=== PATIENT | female | born 1930 | race Caucasian/White ===

== ENCOUNTER 2018-08-22 12:59 | Observation (INO) | payer MEDICARE, OTHER ==
[2018-08-22 13:38] LABS: Hemoglobin 11.8 gm/dL (12.5-16.0); Mean Cell Volume 92.8 fl (78-100); Mean Corpuscular Hemoglobin 31.3 pg (27-31); Mean Corpuscular Hgb Conc 33.7 g/dl (32-36); Mean Platelet Volume 10.7 fl (8-12.5); Neutrophil # 4.5 K/mm3 (1.3-6.0); Neutrophil % 63.4 % (42-75.0); Platelet Count 196 K/mm3 (150-450); Red Blood Count 3.77 M/mm3 (4.2-5.4); Red Cell Distribution Width 12.1 % (11.5-14.0); White Blood Count 7.1 K/mm3 (4.0-10.5)
[2018-08-22 13:45] LABS: Urine Bilirubin Negative (NEGATIVE); Urine Ketone Negative (NEGATIVE); Urine Nitrite Negative (NEGATIVE); Urine Protein 100 mg/dL (NEGATIVE); Urine Specific Gravity >=1.030 SP.GR. (1.005-1.010); Urine Urobilinogen Normal (NORMAL); Urine pH 5.5 pH (5.0-7.0)
[2018-08-22 13:50] LABS: Albumin * 3.5 gm/dl (3.4-5.0); Anion Gap 12.7 mmol/L (6.8-13.8); BUN/Creatinine Ratio 17.5 (9.0-21.6); Bilirubin, Total 0.3 mg/dL (0.0-1.1); Ca. Corrected For Albumin 8.6 mg/dL (8.4-10.2); Calcium * 8.5 mg/dL (7.9-10.9); Carbon Dioxide 23.6 mmol/L (24-32.6); Potassium 4.3 mmol/L (3.4-4.6); Total Protein 6.6 gm/dL (6.2-8.2)
[2018-08-22 13:57] LABS: Urine Appearance Clear (CLEAR); Urine Bacteria TRACE; Urine Blood 5 /ul (NEGATIVE); Urine Color Yellow; Urine Renal Epithelial Cell TRACE /hpf
[2018-08-22] MEDS ORDERED: NORMAL SALINE 1,000 ML IV ONE (14:46)
--- NOTE | 2018-08-22 15:24 | ERNOTE ---
Lower Extremity HPI - Narrative Date of Service: 08/22/18 - General Lower Extremities Pain: other: bilateral - leg weakness Time Seen by Provider: 08/22/18 13:14 Source: patient Exam Limitations: no limitations - Immun/Allergies/Home Medications Immunizations: IMMUNIZATION HX Immunizations Up to Date No History of Influenza Vaccine Yes Hx Pneumococcal Vaccination Yes Allergies/Adverse Reactions: Allergies Allergy/AdvReac Type Severity Reaction Status Date / Time No Known Allergies Allergy Verified 08/03/18 15:19 Home Medications: HOME MEDICATIONS B-complex with vitamin C tablet 1 tab PO DAILY 05/29/18 [Last Taken Unknown] cholecalciferol (vitamin D3) 2,000 unit capsule 2,000 unit PO DAILY 05/29/18 [Last Taken Unknown] diphenhydramine 25 mg tablet 25 mg PO Q6H PRN tab 05/29/18 [Last Taken Unknown] naproxen sodium 220 mg capsule 220 mg PO BID PRN 05/29/18 [Last Taken Unknown] simvastatin 20 mg tablet 20 mg PO HS tab 05/29/18 [Last Taken Unknown] metoprolol tartrate 25 mg tablet 25 mg PO BID #180 tab 06/08/18 [Last Taken Unknown] glimepiride 2 mg tablet 2 mg PO DAILY #30 tab 07/02/18 [Last Taken Unknown] blood sugar diagnostic strips See Dose Instructions .ROUTE .MEDSUPPLY #20 ea 07/10/18 [Last Taken Unknown] lancets 28 gauge See Dose Instructions .ROUTE .MEDSUPPLY #25 ea 07/10/18 [Last Taken Unknown] lisinopril 10 mg tablet 10 mg PO BID #60 tab 07/24/18 [Last Taken Unknown] metformin 850 mg tablet 850 mg PO BID #60 tab 08/09/18 [Last Taken Unknown] - History of Present Illness Narrative: Patient presents to the ED for leg weakness. She relates that this began today. She was in the store and her legs started shaking and she could not hold herself up, going to the ground. At home her Sx continued and every time she tried to get up her legs would shake and she had to go to the floor again. No CP or SOB> No focal weakness. No back pain. No injury. never had anything like this before. No fever. Occurred: just prior to arrival Location of Incident: other - at the store and at home Method of Injury: Reports: no apparent injury Reason for Fall: Reports: unknown Loss of Consciousness: Reports: no loss of consciousness Modifying Factors - (Improves): Reports: other - rest Modifying Factors - (Worsens): Reports: other - standing Associated Symptoms: Denies: unable to bear weight Other Injuries: Reports: none Subsequent Symptoms: Denies: sensory loss, numbness, bowel/bladder problem Prior Treament: Denies: recently seen Review of Systems - Review of Systems Constitutional: Absent: fever ENT: Absent: sore throat Respiratory: Absent: shortness of breath Cardiology: Absent: chest pain Gastrointestinal/Abdominal: Absent: abdominal pain Neurological: Absent: headache All Other Systems: All systems neg except as marked Medical History (Last Reviewed 08/22/18 @ 15:20 by Alan Allan MD) Diabetes mellitus, type II Fracture, foot Onset Date: 1979 right Hyperlipidemia Hypertension Osteoarthritis Surgical History: Surgical History (Last Reviewed 08/22/18 @ 15:20 by Alan Allan MD) H/O tooth extraction Onset Date: ~1959 H/O: hysterectomy Onset Date: ~1959 History of cataract surgery bilateral 09/2013 and 10/2013 History of colonoscopy Onset Date: 03/2009 diverticulosis History of tonsillectomy in childhood Family History: Family History (Last Reviewed 08/22/18 @ 15:20 by Alan Allan MD) Father CVA (cerebral vascular accident), Onset Age: 89 Mother Cancer, Onset Age: 78 rectal cancer Social History: Preferred Language Spanish Do you have any jewish or Yes: bahai cultural preference? Smoking Status Never smoker Have you smoked in the past 12 No months Do you dip or chew tobacco No Alcohol Use sober Drug Use none (Last Updated 08/03/18 @ 15:41 by Diana Pratt MD) No Social History Section defined Physical Exam - Physical Exam General Appearance: Present: alert, no apparent distress Head Exam: Present: normal inspection, no evidence of injury Eye Exam: Normal inspection: bilateral, PERRL: bilateral Ears, Nose, Throat: Absent: pharyngeal erythema Neck: Present: normal inspection Respiratory: Present: no respiratory distress, normal breath sounds, no accessory muscle use, lungs clear Cardiovascular/Chest: Present: regular rate, rhythm, normal peripheral pulses Gastrointestinal/Abdominal: Present: normal bowel sounds, nontender, soft Back Exam: Present: no vertebral tenderness. Absent: CVA tenderness (R), CVA tenderness (L) Extremity Exam: Present: normal inspection Neurological Exam: Present: alert, other - patellar tendon reflexes equal and symmetric. Sensation intact. Sitting her strength seems to be intact, however with standing her legs shake and she is unstable. Nothing clinically to suggest cauda equina syndrome Skin Exam: Present: normal color, warm/dry ED Progress - Results and Orders Patient's Lab Results:: I have reviewed the patient's lab results. - Vital Signs Patient's Vital Signs:: I have reviewed the patient's vital signs. Vital Signs: Vital Signs 08/22/18 13:06 08/22/18 14:19 Temperature 36.4 C Pulse Rate 72 63 Respiratory Rate 14 15 Blood Pressure 160/66 H 151/61 H O2 Sat by Pulse Oximetry 98 98 - X-Ray X-Ray #1 X-Ray: lumbosacral Interpretation: Interp. by me X-ray Comments: I reviewed official radiology report - Progress/Reassessment Chief Complaint: Lower Extremity Pain/ Injury Progress Note-Subjective: 08/22/18 15:22 Patient has UTI and dehydration. She lives alone at home and is not able to ambulate and does not feel that she can go home with such weakness. D/W Dr Pratt will admit for IV fluids and IV Abx. Patient agreeable. Departure Clinical Impression: Gait instability, UTI (urinary tract infection), Dehydration - Departure Disposition: Still a patient Condition: Stable
[2018-08-22] MEDS ORDERED: ACETAMINOPHEN 500 MG TABLET PO PRN (17:20)
[2018-08-22] MEDS ORDERED: NAPROXEN SODIUM 220 MG TABLET PO PRN (17:21)
[2018-08-22] MEDS ORDERED: ENOXAPARIN SODIUM 40 MG/0.4 ML SYRG SC SCH (17:30)
[2018-08-22] MEDS: FAMOTIDINE 20 MG in DEXTROSE 5 % IN WATER 100 ML IV SCH ×2 (17:38)
--- NOTE | 2018-08-22 17:38 | HP ---
Chief Complaint - Chief Complaint Date of Service: 08/22/18 Time of Service: 17:24 Chief Complaint: I have weaness in my legs since this morning. History of Present Illness: 88-year-old female with past medical history of type 2 diabetes, hypertension, hyperlipidemia, was brought to the ER due to sudden onset weakness and her lower extremities that occurred this morning. 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 Patient denies accompanying dizziness dizziness or shortness of breath or any headache. Patient was then placed in a wheelchair and taken to her car which she drove home. Once at home she attempted to walk and could not sustain herself again and had to lower herself onto the floor once again. Her daughter then brought her to the ER. ER labs x-rays of her spine ruled out any acute pathologies except mildly elevated creatinine which may indicate mild. Patient was also found to have a UTI on urinalysis urine culture was ordered and patient was administered antibiotics. Medical History (Last Reviewed 08/22/18 @ 15:45 by Mellisa Grigsby RN) Diabetes mellitus, type II Fracture, foot Onset Date: 1979 right Hyperlipidemia Hypertension Osteoarthritis Surgical History: Surgical History (Last Reviewed 08/22/18 @ 15:45 by Mellisa Grigsby RN) H/O tooth extraction Onset Date: ~1959 H/O: hysterectomy Onset Date: ~1959 History of cataract surgery bilateral 09/2013 and 10/2013 History of colonoscopy Onset Date: 03/2009 diverticulosis History of tonsillectomy in childhood Family History: Family History (Last Reviewed 08/22/18 @ 15:45 by Mellisa Grigsby RN) Father CVA (cerebral vascular accident), Onset Age: 89 Mother Cancer, Onset Age: 78 rectal cancer Social History: Patient Lives/Resources Home Utilized Occupation Retired Preferred Language Divehi Do you have any church or Yes: Yarsani cultural preference? Smoking Status Never smoker Have you smoked in the past 12 No months Do you dip or chew tobacco No Alcohol Use sober Drug Use none (Last Updated 08/03/18 @ 15:41 by Diana Pratt MD) No Social History Section defined Peds Patient Hx - Developmental: No Pertinent Hx Peds Patient Hx - Medical: No Pertinent Hx Peds Patient Hx - Cardiac/Respiratory: No Pertinent Hx Peds Patient Hx - Surgical: No Surgical History Patient History - Cancer: No Hx of Cancer Review Of Systems (GEN) - Review of Systems Generalized/Overall Review: Present: Weakness EENTM: Present: No Symptoms Reported Respiratory: Present: No Symptoms Reported Cardiac: Present: No Symptoms Reported Abdominal: Present: No Symptoms Reported Genitourinary: Present: Dysuria Musculoskeletal: Present: Other - Lower extremities weakness Neurological: Present: Weakness - [place]. lower extremity weakness Skin: Present: No Symptoms Reported Endocrine: Present: No Symptoms Reported Immunizations: IMMUNIZATION HX Immunizations Up to Date No History of Influenza Vaccine Yes Hx Pneumococcal Vaccination Yes Allergies/Adverse Reactions: Allergies Allergy/AdvReac Type Severity Reaction Status Date / Time No Known Allergies Allergy Verified 08/22/18 15:45 Home Medications: HOME MEDICATIONS B-complex with vitamin C tablet 1 tab PO DAILY 05/29/18 [Last Taken Unknown] cholecalciferol (vitamin D3) 2,000 unit capsule 2,000 unit PO DAILY 05/29/18 [Last Taken 08/22/18] diphenhydramine 25 mg tablet 25 mg PO Q6H PRN tab 05/29/18 [Last Taken Unknown] naproxen sodium 220 mg capsule 220 mg PO BID PRN 05/29/18 [Last Taken Unknown] simvastatin 20 mg tablet 20 mg PO HS tab 05/29/18 [Last Taken 08/21/18] metoprolol tartrate 25 mg tablet 25 mg PO BID #180 tab 06/08/18 [Last Taken 08/22/18] glimepiride 2 mg tablet 2 mg PO DAILY #30 tab 07/02/18 [Last Taken 08/22/18] blood sugar diagnostic strips See Dose Instructions .ROUTE .MEDSUPPLY #20 ea 07/10/18 [Last Taken Unknown] lancets 28 gauge See Dose Instructions .ROUTE .MEDSUPPLY #25 ea 07/10/18 [Last Taken Unknown] lisinopril 10 mg tablet 10 mg PO BID #60 tab 07/24/18 [Last Taken 08/22/18] metformin 850 mg tablet 850 mg PO BID #60 tab 08/09/18 [Last Taken 08/22/18] Exam - Exam Vital Signs: Vital Signs - Last Taken Temp 36.4 C 08/22/18 15:49 Pulse 68 08/22/18 15:59 Resp 16 08/22/18 15:49 BP 175/54 H 08/22/18 15:49 Pulse Ox 98 08/22/18 15:49 Constitutional: Present: Alert, Oriented x3, Cooperative, Well developed, Well nourished, No distress, Elderly ENT Exam: Present: normal ENT inspection, hearing grossly normal, pharynx normal Eye Exam: bilateral eye: normal inspection, PERRL, EOMI Neck: Present: non-tender, full range of motion, supple, normal inspection, trachea midline, limited range of motion Back Exam: Present: normal inspection, no CVA tenderness, no vertebral tenderness Breasts: Present: Exam deferred Respiratory: Present: chest non-tender Cardiovascular/Chest: Present: normal peripheral pulses, regular rate, rhythm, no chest tenderness, no edema, no gallop, no JVD, no murmur Peripheral Pulses: carotid (R): 3+, carotid (L): 3+, femoral (R): 3+, femoral (L): 3+, dorsalis-pedis (R): 3+, dorsalis-pedis (L): 3+, radial (R): 3+, radial (L): 3+ Abdomen: Present: Normal bowel sounds, soft, nontender, nondistended, no rebound tenderness, no hepatospenomegaly, no masses /Rectal: Present: Exam deferred Extremity: Present: normal range of motion, non-tender, normal inspection, no pedal edema, no calf tenderness, normal capillary refill, pelvis stable Skin Exam: Present: normal color, warm/dry, no cyanosis Lymphatic: Present: no adenopathy Neurologic: Present: wing commander II-XII nml as tested, normal cerebellar test, no motor/sensory deficits, alert, normal mood/affect, oriented x 3 Appearance: Present: appropriate appearance, appropriate insight, neat, no memory impairment Diagnostic Studies: Abnormal Lab Results 08/22/18 08/22/18 08/22/18 Range/Units 13:33 13:33 13:42 RBC 3.77 L (4.2-5.4) M/mm3 Hgb 11.8 L (12.5-16.0) gm/dL Hct 35.0 L (37.0-47.0) % MCH 31.3 H (27-31) pg Monocytes % 10.6 H (0.0-9) % Basophils % 1.1 H (0.0-1.0) % Chloride 107 H (97-106) mmol/L Carbon Dioxide 23.6 L (24-32.6) mmol/L BUN 27 H (3-23) mg/dL Creatinine 1.54 H (0.4-1.4) mg/dL Est GFR (Non-Af Amer) 34 L (60-130) mL/min Random Glucose 166 H (70-110) mg/dL Urine Protein 100 H (NEGATIVE) mg/dL Urine Blood 5 H (NEGATIVE) /ul Ur Leukocyte Esterase 100 H (NEGATIVE) /ul Urine RBC 5-10 H (0-5) /hpf Urine WBC 5-10 H (0-5) /hpf Laboratory Results WBC 7.1 K/mm3 (4.0-10.5) 08/22/18 13:33 RBC 3.77 M/mm3 (4.2-5.4) L 08/22/18 13:33 Hgb 11.8 gm/dL (12.5-16.0) L 08/22/18 13:33 Hct 35.0 % (37.0-47.0) L 08/22/18 13:33 MCV 92.8 fl (78-100) 08/22/18 13:33 MCH 31.3 pg (27-31) H 08/22/18 13:33 MCHC 33.7 g/dl (32-36) 08/22/18 13:33 RDW 12.1 % (11.5-14.0) 08/22/18 13:33 Plt Count 196 K/mm3 (150-450) 08/22/18 13:33 MPV 10.7 fl (8-12.5) 08/22/18 13:33 Immature Gran % (Auto) 0.30 % (0.001-0.429) 08/22/18 13:33 Immature Gran # (Auto) 0.02 K/mm3 (0.000-0.0310) 08/22/18 13:33 Neutrophils % 63.4 % (42-75.0) 08/22/18 13:33 Lymphocytes % 23.1 % (20-51) 08/22/18 13:33 Monocytes % 10.6 % (0.0-9) H 08/22/18 13:33 Eosinophils % 1.5 % (0.0-3.0) 08/22/18 13:33 Basophils % 1.1 % (0.0-1.0) H 08/22/18 13:33 Nucleated RBC % 0.0 k/mm3 (0-1) 08/22/18 13:33 Neutrophils # 4.5 K/mm3 (1.3-6.0) 08/22/18 13:33 Lymphocytes # 1.64 k/mm3 (1.5-3.5) 08/22/18 13:33 Monocytes # 0.8 k/mm3 (0.0-1.0) 08/22/18 13:33 Eosinophils # 0.1 k/mm3 (0.0-0.7) 08/22/18 13:33 Absolute Basophils 0.1 k/mm3 (0.0-0.1) 08/22/18 13:33 Sodium 139 mmol/L (132-142) 08/22/18 13:33 Plasma Sodium 140 mmol/L (130-142) 08/22/18 13:33 Potassium 4.3 mmol/L (3.4-4.6) 08/22/18 13:33 Chloride 107 mmol/L (97-106) H 08/22/18 13:33 Carbon Dioxide 23.6 mmol/L (24-32.6) L 08/22/18 13:33 Anion Gap 12.7 mmol/L (6.8-13.8) 08/22/18 13:33 BUN 27 mg/dL (3-23) H 08/22/18 13:33 Creatinine 1.54 mg/dL (0.4-1.4) H 08/22/18 13:33 Est GFR (Non-Af Amer) 34 mL/min (60-130) L 08/22/18 13:33 BUN/Creatinine Ratio 17.5 (9.0-21.6) 08/22/18 13:33 Random Glucose 166 mg/dL (70-110) H 08/22/18 13:33 Calcium 8.5 mg/dL (7.9-10.9) 08/22/18 13:33 Calcium Adj for Albumin 8.6 mg/dL (8.4-10.2) 08/22/18 13:33 Total Bilirubin 0.3 mg/dL (0.0-1.1) 08/22/18 13:33 AST 17 U/L (0-48) 08/22/18 13:33 ALT 22 U/L (19-67) 08/22/18 13:33 Alkaline Phosphatase 61 U/L (50-170) 08/22/18 13:33 Total Protein 6.6 gm/dL (6.2-8.2) 08/22/18 13:33 Albumin 3.5 gm/dl (3.4-5.0) 08/22/18 13:33 Urine Color Yellow 08/22/18 13:42 Urine Appearance Clear (CLEAR) 08/22/18 13:42 Urine pH 5.5 pH (5.0-7.0) 08/22/18 13:42 Ur Specific [place] >=1.030 SP.GR. (1.005-1.010) 08/22/18 13:42 Urine Protein 100 mg/dL (NEGATIVE) H 08/22/18 13:42 Urine Glucose (UA) Negative mg/dL (NEGATIVE) 08/22/18 13:42 Urine Ketones Negative mg/dL (NEGATIVE) 08/22/18 13:42 Urine Blood 5 /ul (NEGATIVE) H 08/22/18 13:42 Urine Nitrate Negative (NEGATIVE) 08/22/18 13:42 Urine Bilirubin Negative mg/dl (NEGATIVE) 08/22/18 13:42 Prot Sulfosalicylic Acd 1+ mg/dL (0) 08/22/18 13:42 Urine Urobilinogen Normal EU/dl (NORMAL) 08/22/18 13:42 Ur Leukocyte Esterase 100 /ul (NEGATIVE) H 08/22/18 13:42 Urine RBC 5-10 /hpf (0-5) H 08/22/18 13:42 Urine WBC 5-10 /hpf (0-5) H 08/22/18 13:42 Ur Epithelial Cells 0-5 /hpf (0-5) 08/22/18 13:42 Ur Renal Epithelial Cell Trace /hpf (NONE) 08/22/18 13:42 Urine Bacteria Trace (NONE) 08/22/18 13:42 Urine Culture Comments Culture to follow 08/22/18 13:42 Assessment/Plan - Narrative Narrative: Patient was admitted to outpatient observation for IV hydration, IV antibiotics for UTI, and close monitoring with telemetry. Head CT without contrast was ordered to rule out any neurological pathologies. Patient was placed on strict bed rest regular meds were ordered to be administered, and PT evaluation was requested for evaluation and treatment. Will follow up with CT results and urine cultures. - Assessment/Plan (1) UTI (urinary tract infection) Problem: Acute (2) Unstable gait Problem: Acute (3) Acute focal neurological deficit, onset within 3-24 hours Problem: Acute
[2018-08-22] MEDS: CIPROFLOXACIN IN 5 % DEXTROSE 400 MG/200 ML BAG IV SCH (17:41)
[2018-08-22] MEDS ORDERED: ONDANSETRON HCL/PF 2 MG/ML VIAL IV PRN (20:26)
[2018-08-22] MEDS: LISINOPRIL 10 MG TABLET PO SCH (20:54)
[2018-08-22] MEDS: METOPROLOL TARTRATE 25 MG TABLET PO SCH (20:54)
[2018-08-22] MEDS ORDERED: SIMVASTATIN 20 MG TABLET PO SCH (21:00)
[2018-08-23] MEDS: CIPROFLOXACIN IN 5 % DEXTROSE 400 MG/200 ML BAG IV SCH (05:00)
[2018-08-23] MEDS: FAMOTIDINE 20 MG in DEXTROSE 5 % IN WATER 100 ML IV SCH ×2 (06:04)
[2018-08-23] MEDS: GLIMEPIRIDE 2 MG TABLET PO SCH ×2 (07:16→08:27)
[2018-08-23] MEDS ORDERED: VITAMIN B COMP W-C 1 TAB TABLET PO SCH (09:00)
[2018-08-23] MEDS ORDERED: DOCUSATE SODIUM 100 MG CAPSULE PO SCH (09:00)
[2018-08-23] MEDS ORDERED: CHOLECALCIFEROL 1,000 UNIT CAPSULE PO SCH (09:00)
[2018-08-23] MEDS: LISINOPRIL 10 MG TABLET PO SCH (09:05)
[2018-08-23] MEDS: METOPROLOL TARTRATE 25 MG TABLET PO SCH (09:06)
[2018-08-23 09:55] LABS: Albumin * 3.2 gm/dl (3.4-5.0); Anion Gap 13.4 mmol/L (6.8-13.8); BUN/Creatinine Ratio 13.5 (9.0-21.6); Bilirubin, Total 0.3 mg/dL (0.0-1.1); Ca. Corrected For Albumin 8.9 mg/dL (8.4-10.2); Calcium * 8.6 mg/dL (7.9-10.9); Carbon Dioxide 24.2 mmol/L (24-32.6); Potassium 4.6 mmol/L (3.4-4.6); Total Protein 6.2 gm/dL (6.2-8.2)
[2018-08-23] MEDS ORDERED: INSULIN REGULAR, HUMAN 100 UNITS/ML VIAL IV ONE (10:30)
[2018-08-23] MEDS ORDERED: NORMAL SALINE 250 ML IV ONE (11:00)
--- NOTE | 2018-08-23 11:04 | DS ---
(1) UTI (urinary tract infection) Problem: Acute (2) Unstable gait Problem: Acute (3) Acute focal neurological deficit, onset within 3-24 hours Problem: Acute (4) Moderate dehydration Problem: Resolved Description of Stay: 88-year-old female admitted for moderate dehydration, UTI, acute neurologic deficit, and unstable gait was evaluated at bedside and was found to be afebrile and in no acute distress. Patient's clinical condition has improved since being admitted, she appears stronger and more alert and in good spirits. She also reports being steadier on her feet and does not feel as "wobbly"like she did yesterday. Patient was evaluated by PT and was found to have adequate ambulation but lack of balance, they recommended outpatient physical therapy to work on her balance. Patient was treated with IV hydration and IV antibiotic for a UTI. Urine culture demonstrates growth gram-negative ashwini so patient will be discharged with an order for urinalysis and oral antibiotics. She will also be sent home with an order for CMP to reevaluate kidney function. Head CT was negative for any acute findings. Patient was instructed to schedule appointment for follow-up with myself her PCP for reevaluation within the next few days. Procedures Performed: none Results and Findings: Pending Mircobiology Results 08/22/18 13:40 Urine,Voided Urine Culture - Preliminary Gram Negative Bacilli Lab Pending Results 08/22/18 13:33: WBC 7.1, RBC 3.77 L, Hgb 11.8 L, Hct 35.0 L, MCV 92.8, MCH 31.3 H, MCHC 33.7, RDW 12.1, Plt Count 196, MPV 10.7, Immature Gran % (Auto) 0.30, Immature Gran # (Auto) 0.02, Neutrophils % 63.4, Lymphocytes % 23.1, Monocytes % 10.6 H, Eosinophils % 1.5, Basophils % 1.1 H, Nucleated RBC % 0.0, Neutrophils # 4.5, Lymphocytes # 1.64, Monocytes # 0.8, Eosinophils # 0.1, Absolute Basophils 0.1 08/22/18 13:33: Sodium 139, Plasma Sodium 140, Potassium 4.3, Chloride 107 H, Carbon Dioxide 23.6 L, Anion Gap 12.7, BUN 27 H, Creatinine 1.54 H, Est GFR (Non-Af Amer) 34 L, BUN/Creatinine Ratio 17.5, Random Glucose 166 H, Calcium 8.5, Calcium Adj for Albumin 8.6, Total Bilirubin 0.3, AST 17, ALT 22, Alkaline Phosphatase 61, Total Protein 6.6, Albumin 3.5 08/22/18 13:42: Urine Color Yellow, Urine Appearance Clear, Urine pH 5.5, Ur Specific [place] >=1.030, Urine Protein 100 H, Urine Glucose (UA) Negative, Urine Ketones Negative, Urine Blood 5 H, Urine Nitrate Negative, Urine Bilirubin Negative, Prot Sulfosalicylic Acd 1+, Urine Urobilinogen Normal, Ur Leukocyte Esterase 100 H, Urine RBC 5-10 H, Urine WBC 5-10 H, Ur Epithelial Cells 0-5, Ur Renal Epithelial Cell Trace, Urine Bacteria Trace, Urine Culture Comments Culture to follow 08/23/18 09:33: Sodium 138, Plasma Sodium 140, Potassium 4.6, Chloride 105, Carbon Dioxide 24.2, Anion Gap 13.4, BUN 20, Creatinine 1.48 H, Est GFR (Non-Af Amer) 35 L, BUN/Creatinine Ratio 13.5, Random Glucose 231 H D, Calcium 8.6, Calcium Adj for Albumin 8.9, Total Bilirubin 0.3, AST 18, ALT 19, Alkaline Phosphatase 50, Total Protein 6.2, Albumin 3.2 L Discharge Location: Home Disposition: Home self-care Condition: Good Face to Face Encounter completed per [facility] Guidelines: No Discharge Activity: Activity as tolerated Discharge Diet: Consistent carbs Referrals: Diana Pratt MD [Primary Care Provider] - Additional Patient Instructions (free text): -Please make TCM appointment unless senior living discharge. Thank you! [place] @ [phone]. Prescriptions (Any new or edited meds): Ciprofloxacin HCl [Cipro] 250 mg PO BID 5 Days #10 tablet Complete Home Medications List: Complete Home Medication List: B-complex with vitamin C tablet 1 tab PO DAILY 05/29/18 cholecalciferol (vitamin D3) 2,000 unit capsule 2,000 unit PO DAILY 05/29/18 diphenhydramine 25 mg tablet 25 mg PO Q6H PRN tab 05/29/18 naproxen sodium 220 mg capsule 220 mg PO BID PRN 05/29/18 simvastatin 20 mg tablet 20 mg PO HS tab 05/29/18 metoprolol tartrate 25 mg tablet 25 mg PO BID #180 tab 06/08/18 glimepiride 2 mg tablet 2 mg PO DAILY #30 tab 07/02/18 blood sugar diagnostic strips See Dose Instructions .ROUTE .MEDSUPPLY #20 ea 07/10/18 lancets 28 gauge See Dose Instructions .ROUTE .MEDSUPPLY #25 ea 07/10/18 lisinopril 10 mg tablet 10 mg PO BID #60 tab 07/24/18 metformin 850 mg tablet 850 mg PO BID #60 tab 08/09/18 Ciprofloxacin HCl [Cipro] 250 mg PO BID 5 Days #10 tablet 08/23/18 Amb Orders for Discharge: PT Evaluation and Treatment* Time Frame: 3 Days, Facility: [facility], Location: Outpatient Conversion
[2018-08-23 12:27] VITALS: BP 142/48
== END 2018-08-23 12:50 | disposition home or self-care (01) ==
LOC: MS 12:59 → ER 12:59 → MS 15:48
PROVIDERS: ADMIT Family Medicine; ATTEND Family Medicine
CPT/HCPCS: 36415; 70450; 72110; 80053; 81001; 85025; 87077; 87086; 87186; 96365; 96366; 96367; 96372; 96375; 97161; 99285; G0378; G8978; G8979; G8980; J2405